=== PATIENT | female | born 1985 | race Caucasian/White ===

== ENCOUNTER → 2021-09-25 | Outpatient (CLI) | payer BC, OTHER ==
[~2021-09-25] MED LIST: YAZ
--- NOTE | 2021-09-25 15:48 | Diagnostic Imaging Report ---
PROCEDURE: Pelvic complete, transabdominal and transvaginal sonogram. Limited pelvic doppler. TECHNIQUE: Multiple real-time grayscale images were obtained of the pelvis in various projections transabdominally and transvaginally. Limited pelvic duplex images were obtained. HISTORY: Abnormal uterine bleeding COMPARISON: None available. FINDINGS: Uterus: The uterus is retroverted and measures 7.5 x 3.9 x 4.9 cm. The myometrium is homogeneous without fibroids. Endometrium: The endometrium is normal in thickness and measures 0.7 cm. There is flow seen within the cervix. Adnexa: The right ovary is surgically absent. Left ovary has a normal appearance. The left ovary measures 1.9 x 1.6 x 1.8 cm. Duplex images reveal normal vascular flow to both ovaries. Other: There is no free fluid within the pelvis. IMPRESSION: 1. Unremarkable pelvic ultrasound. Dictated by: Dictated on workstation # [id number]
== END ==
LOC: RAD 12:38
PROVIDERS: ATTEND Obstetrics & Gynecology
DX: N93.9 Abnormal uterine and vaginal bleeding, unspecified (principal)
CPT/HCPCS: 76830; 76856

== ENCOUNTER 2021-11-11 05:40 | Outpatient (CLI) | payer BC ==
[~2021-11-11] VITALS: Ht 162.6 cm; Wt 93.0 kg
[2021-11-11] MEDS ORDERED: DILT120C82 PO (10:57)
[2021-11-11] MEDS ORDERED: BUSP5TAB59 PO (10:57)
[2021-11-11] MEDS ORDERED: SOTA120T PO (10:57)
[2021-11-11] MEDS ORDERED: SERT-414 PO (10:57)
[2021-11-11] MEDS ORDERED: ETON68IM3 SQ (10:57)
== END 2021-11-11 11:45 | disposition home or self-care (01) ==
LOC: PREOP 05:40
PROVIDERS: ATTEND Obstetrics & Gynecology
DX: Z01.818 Encounter for other preprocedural examination (principal)

== ENCOUNTER 2021-11-17 06:57 | Day surgery (SDC) | payer BC ==
[2021-11-17] VITALS (10 sets, daily range): BP systolic 105–118; BP diastolic 61–79
[~2021-11-17] VITALS: Ht 162.6 cm; Wt 93.0 kg
[~2021-11-17 06:57] MED LIST changes: +BUSP5TAB59 PO; +DILT120C82 PO; +ETON68IM3 SQ; +SERT-414 PO; +SOTA120T PO
[2021-11-17] MEDS ORDERED: metroNIDAZOLE 500MG/100ML IVPB 100 ML IV ONE (07:30)
[2021-11-17] MEDS ORDERED: ceFAZolin 2 GM IV Premixed 50 ML IV ONE (07:30)
[2021-11-17] MEDS: LACTATED RINGERS 1,000 ML IV PRN ×3 (08:08→10:56)
[2021-11-17 08:10] LABS: BASOPHILS # (AUTO) 0.1 10^3/uL (0.0-0.1); BASOPHILS % (AUTO) 1 % (0-10); EOSINOPHILS # (AUTO) 0.3 10^3/uL (0.0-0.3); EOSINOPHILS % (AUTO) 2 % (0-10); HEMATOCRIT 47 % (35-52); HEMOGLOBIN 15.9 g/dL (11.5-16.0); LYMPHOCYTES # (AUTO) 3.7 10^3/uL (1.0-4.0); LYMPHOCYTES % (AUTO) 25 % (12-44); MEAN CORPUSCULAR HEMOGLOBIN 33 pg (25-34); MEAN CORPUSCULAR HGB CONC 34 g/dL (32-36); MEAN CORPUSCULAR VOLUME 97 fL (80-99); MEAN PLATELET VOLUME 10.6 fL (9.0-12.2); MONOCYTES # (AUTO) 0.7 10^3/uL (0.0-1.0); MONOCYTES % (AUTO) 4 % (0-12); NEUTROPHILS # (AUTO) 10.1 10^3/uL (1.8-7.8); NEUTROPHILS % (AUTO) 68 % (42-75); PLATELET COUNT 292 10^3/uL (130-400); WHITE BLOOD COUNT 14.9 10^3/uL (4.3-11.0)
[2021-11-17 08:28] LABS: EOSINOPHILS % (MANUAL) 5 %; LYMPHOCYTES % (MANUAL) 29 %; MONOCYTES % (MANUAL) 4 %; NEUTROPHILS % (MANUAL) 62 %
[2021-11-17 08:29] LABS: RBC MORPH NORMAL
[2021-11-17] MEDS ORDERED: BUPIVACAINE 0.25% 30 ML (SENSORCAINE) VIAL ONE (08:31)
[2021-11-17] MEDS ORDERED: CLINDAMYCIN 900 MG/50 ML IVPB 50 ML IV ONE ×2 (08:37→09:00)
[2021-11-17] MEDS ORDERED: GLYCOPYRROLATE 0.2 MG/ML (ROBINUL) 2 ML VIAL ONE (08:58)
[2021-11-17] MEDS ORDERED: LIDOCAINE PF 2% 5 ML (XYLOCAINE) VIAL ONE (08:58)
[2021-11-17] MEDS ORDERED: proPOfol 200 MG/20 ML (DIPRIVAN) VIAL IV ONE (08:58)
[2021-11-17] MEDS ORDERED: ONDANSETRON 4 MG/2 ML (SDV) Z0FRAN ONE (08:58)
[2021-11-17] MEDS ORDERED: fentaNYL INJ 100 MCG/2 ML AMP ONE (08:58)
[2021-11-17] MEDS ORDERED: ROCURONIUM 50 MG/5 ML (ZEMURON) VIAL IV ONE (08:58)
[2021-11-17] MEDS ORDERED: MIDAZOLAM 2 MG/2 ML (VERSED) VIAL ONE (08:58)
[2021-11-17] MEDS ORDERED: NEOSTIGMINE (BLOXIVERZ ) 1 MG/1ML 10 ML VIAL ONE (08:59)
--- NOTE | 2021-11-17 08:59 | Discharge Inst-Women's Service ---
Discharge Inst-Women's Serv Depart Medication/Instructions New, Converted or Re-Newed RX: Transmitted to Pharmacy Problems Reviewed?: Yes Consults/Follow Up Additional Follow Up: Yes Activity Activity: Activity as Tolerated Driving Instructions: No Driving for 1 Week NO SMOKING: NO SMOKING Nothing Inside Vagina: No Douching, No [place], No Tampons Diet Discharge Diet: No Restrictions Symptoms to Report to : Bleeding Excessive, Pain Increased, Fever Over 101 Degrees F, Vaginal Bleeding Increase, Questions/Concerns For Any Problems or Questions: Contact Your Physician Skin/Wound Care Infection Signs and Symptoms: Increased Redness, Foul Odor of Wound, Increased Drainage, Skin Itchy or Has a Rash, Increased Swelling, Temperature Above 101 F Operative Area Clean and Dry: Keep Incision Clean/Dry Stitches/Morgan/Dermabond: Dermabond, Care of Stitches Bathing Instructions: ADRIENNE Emerson DO Nov 17, 2021 08:59
[2021-11-17] MEDS ORDERED: ONDANSETRON 4 MG/2 ML (SDV) Z0FRAN IV PRN (09:00)
[2021-11-17] MEDS ORDERED: DOCUSATE SODIUM 100 MG (COLACE) CAP PO PRN (09:00)
[2021-11-17] MEDS ORDERED: SIMETHICONE 80 MG (MYLICON) CHEW PO PRN (09:00)
[2021-11-17] MEDS ORDERED: ZOLPIDEM 5 MG (AMBIEN) TAB PO PRN (09:00)
[2021-11-17] MEDS ORDERED: ANTACID SUSP 30 ML UDC (MYLANTA) PO PRN (09:00)
[2021-11-17] MEDS ORDERED: IBUPROFEN 600 MG (MOTRIN) TAB PO PRN (09:00)
[2021-11-17] MEDS ORDERED: HYDROcodone/APAP 7.5 MG/325 MG (LORTAB, LORCET PLUS) TABLET PO PRN (09:00)
[2021-11-17] MEDS ORDERED: HYDR-34 PO (09:01)
[2021-11-17] MEDS ORDERED: DOCU100C37 PO (09:01)
[2021-11-17] MEDS ORDERED: BENZ1LOZ74 MM (09:01)
[2021-11-17] MEDS ORDERED: SIME80TA16 PO (09:01)
[2021-11-17] MEDS ORDERED: IBUP-844 PO (09:01)
[2021-11-17] MEDS ORDERED: SUCCINYLCHOLINE INJ 100 MG/5 ML SYR/VIAL ONE (09:12)
[2021-11-17] MEDS ORDERED: PHENYLEPHRINE 100 MCG/ML 10 ML (ANESTHESIA) SYR ONE (09:26)
[2021-11-17] MEDS ORDERED: morphine INJ 10 MG/ML 1ML (SYR OR VIAL) IVP ONE (10:45)
[2021-11-17] MEDS ORDERED: HYDROmorphone 2 MG/ML VIAL (DILAUDID) IV ONE (10:45)
[2021-11-17] MEDS ORDERED: PROMETHAZINE INJ 25 MG/ML (PHENERGAN) AMP IVP ONE (10:45)
[2021-11-17] MEDS ORDERED: ONDANSETRON 4 MG/2 ML (SDV) Z0FRAN IVP PRN (10:45)
[2021-11-17] MEDS ORDERED: SEVOFLURANE (ULTANE) 15 ML INHAL SOLN ONE (10:47)
[2021-11-17] MEDS ORDERED: morphine INJ 10 MG/ML 1ML (SYR OR VIAL) ONE (10:51)
[2021-11-17] MEDS ORDERED: KETOROLAC 30 MG/ML VIAL ONE (10:51)
[2021-11-17] MEDS: KETOROLAC 30 MG/ML VIAL IVP PRN ×2 (10:54→17:07)
[2021-11-17] MEDS: LACTATED RINGERS 1,000 ML IV SCH ×2 (10:56→12:25)
[2021-11-17] MEDS ORDERED: CEPACOL SORE THROAT-COUGH LOZENGE MM PRN (12:30)
--- NOTE | 2021-11-17 13:06 | Anesthesia-General Post-Op ---
General Patient Condition Mental Status/LOC: Same as Preop Cardiovascular: Satisfactory Nausea/Vomiting: Present Respiratory: Satisfactory Pain: Controlled Complications: Absent Post Op Complications Complications None Follow Up Care/Instructions Patient Instructions None needed. Anesthesia/Patient Condition Patient Condition Patient was doing well in PACU, no complaints, stable vital signs, no apparent adverse anesthesia problems. She did have nausea and vomiting on arrival to the operating room, prior to induction. She stated that it was much improved in PACU. No complications reported per nursing. IVAN COSTA DO Nov 17, 2021 13:06
--- NOTE | 2021-11-17 15:50 | OPERATIVE REPORT ---
DATE OF SERVICE: 11/17/2021 PREOPERATIVE DIAGNOSES: 1. A 36-year-old female with chronic pelvic pain. 2. Pelvic endometriosis. 3. Dyspareunia and dysmenorrhea. POSTOPERATIVE DIAGNOSES: 1. A 36-year-old female with chronic pelvic pain. 2. Pelvic endometriosis. 3. Dyspareunia and dysmenorrhea. PROCEDURE: Robotic-assisted total laparoscopic hysterectomy with left salpingo-oophorectomy. SURGEON: Papito Felipe DO DECK SPECIALIST: Ese Gan DNP, who was necessary for manipulation and retraction throughout the procedure. ANESTHESIA: General endotracheal. ESTIMATED BLOOD LOSS: Minimal. URINE OUTPUT: 150 mL clear at the end of the procedure. FLUIDS: 1800 mL lactated Ringer's solution. FINDINGS: Normal sized uterus, absent right adnexa, fallopian tube, and ovary. Left, normal-appearing fallopian tube with filmy adhesions of the adnexa to the descending sigmoid colon on the left side, multiple serosal dark spots that are consistent with a history of pelvic peritoneal endometriosis. Grossly normal-appearing external female genitalia. SPECIMEN SENT: Uterus, left tube and ovary. INDICATIONS FOR PROCEDURE: This 36-year-old female was a patient who had sought care in my office for definitive measures for ongoing issues with endometriosis. She has been dealing with this since her teenage years and has undergone multiple conservative treatment modalities without any relief. The patient is now done with childbearing and wishes to seek more definitive measures. It is understanding that endometriosis driven by hormones and is okay with being without hormones for 6 to 12 months to allow for endometriosis to resolve and then possibly being on estrogen replacement therapy. We discussed the risk of this involved including the risk of the surgery, which would include bleeding, infection, damaging surrounding structures including, but not limited to bowel, bladder, ureter, kidneys, possible need for reoperation, postoperative complications that may occur, risk from anesthesia, recovery timeframe, hospital stay and even . After everything was discussed with the patient in detail, consent was obtained, the patient was taken to the operating room. OPERATIVE REPORT IN DETAIL: Once in the operating room, general anesthesia was found to be adequate. She was placed in dorsal lithotomy position, prepped and draped in normal sterile fashion. A timeout was performed and a Faulkner catheter was placed using sterile technique. A weighted speculum inserted to the patient's vagina. Right angle retractor was used to visualize the cervix, which was grasped at 12 o'clock position using a long Allis clamp and 0 Vicryl suture was then placed anterior lip of the cervix and the Vicryl was then used as my retraction point on the cervix. I then gently sound the uterine cavity, depth was found to be 8 cm. I placed a Patricia uterine manipulator with 8 cm tip and a 3 cm colpotomy ring into the uterus, deploying the balloon and advancing the colpotomy ring around the vaginal fornix after which I removed all the other instruments from the patient's vagina, performed change of gloves, turned my attention to the abdomen where the midclavicular line on the left side about 1 fingerbreadth under the lowest rib. I introduced a Veress needle through intraperitoneal placement confirmed using saline drop test. An opening pressure of 6 mmHg was noted. I proceeded to maximum pressure of 15 mmHg using CO2 gas, at which point, I infiltrated the infraumbilical area using 0.25% Marcaine and make an 8 mm incision with a knife and directed a blunt 8 mm da Filiberto laparoscopic trocar through the incision until intraperitoneal placement was confirmed using the da Filiberto laparoscope. No evidence of damage is noted upon my entry site. I then scanned the upper abdominal anatomy, which appears to be grossly normal. The Veress needle entry site was identified and found to have caused no damage as well. The Veress needle was then removed. I then had the patient placed in steep Trendelenburg where I visualize all my pelvic anatomy as defined in my findings above. I placed two lateral trocars approximately 10 cm lateral to my infraumbilical trocar. Both of these are 8 mm incisions. The skin is infiltrated using 0.25% Marcaine. Incisions were made with a knife and the trocars were placed under direct visualization of the laparoscope. Once both of these are in place, I brought in the da Filiberto robot and docked in appropriate fashion, placing the SynchroSeal device in left hand and monopolar brandon in the right hand. I performed the following dissection. The right side is absent, therefore on the left side, I started at the infundibulopelvic ligament, which I sealed and transected using the SynchroSeal device. I then grasped the round ligament, which I sealed and transected using the SynchroSeal device. I took this all the way down to the lower uterine segment, at which point I the anterior and posterior leaflets of the broad ligament. The anterior leaflet was taken around the anterior vaginal fornix. Posterior leaflets was taken around the posterior vaginal fornix. This allows me to skeletonize the uterine vessels laterally, which I sealed and transected using the vessel sealer. I took my dissection from the anterior peritoneal reflection around to the right side due to the absence of the right broad ligament, which allows me to open up the lateral aspect of the uterus and the vascular blood supply. I did this similarly on the posterior side as well. Once this was done and the peritoneum was pulled away, I am able to skeletonize uterine vessels on the right side, which I sealed and transected using the SynchroSeal device. I then created a colpotomy at 12 o'clock position using monopolar brandon and took this circumferentially around the vaginal fornix, amputating the cervix away from the vagina. The entire cervix, uterus and left tube and ovary were then removed through the vagina. I then closed the vaginal cuff using 2-0 V-Loc in a running fashion, after which no active bleeding noted from any of my dissection planes. I then undocked the da Filiberto robot and proceeded with remainder of the case laparoscopically. I copiously irrigated the pelvis using normal saline. Once again, there was no active bleeding noted from any of my dissection planes. I placed Surgiflo hemostatic agent over all my planes of dissection. I had the patient taken out of steep Trendelenburg where I released insufflation and removed the lateral trocars under direct visualization of the laparoscope. The infraumbilical trocars left in place to release insufflation and to introduce 10 mL of 0.25% Marcaine into peritoneal cavity for postoperative pain management. I then removed this trocar as well. The skin reapproximated using 4-0 Monocryl. Bandage was placed over the incisions. Faulkner catheter was left in place. The patient tolerated the procedure well and sent to recovery area in stable condition. Lap and sponge counts were correct at the end of procedure. Instrument counts correct as well. Two grams of Ancef, 900 mg of clindamycin and 500 mg of Flagyl were given preoperatively for infection prophylaxis. Job ID: [id number] DocumentID: [id number] Dictated Date: 11/17/2021 10:55:26 [employer] Worker Date: 11/17/2021 15:49:53 Dictated By: PAPITO FELIPE DO
== END 2021-11-17 18:05 | disposition home or self-care (01) ==
LOC: SDC 06:57 → WS 11:37 → SDC 18:05
PROVIDERS: ATTEND Obstetrics & Gynecology
DX: N80.0 Endometriosis of uterus (principal); N94.6 Dysmenorrhea, unspecified
CPT/HCPCS: 36415; 84703; 85007; 85027; 86850; 86900; 86901

== ENCOUNTER → 2023-04-14 | Outpatient (CLI) | payer OTHER ==
[~2023-04-14] MED LIST changes: +BENZ1LOZ74 MM; +DOCU100C37 PO; -ETON68IM3 SQ; +ETON68IM4 SQ; +HYDR-34 PO; +IBUP-844 PO; +SIME80TA16 PO
--- NOTE | 2023-04-14 11:39 | Diagnostic Imaging Report ---
PROCEDURE: CT abdomen and pelvis without contrast. TECHNIQUE: Multiple contiguous axial images were obtained through the abdomen and pelvis without the use of intravenous contrast. Auto Exposure Controls were utilized during the CT exam to meet ALARA standards for radiation dose reduction. INDICATION: Right lower quadrant and low back pain. Unenhanced images of liver and spleen reveal no focal abnormality. The gallbladder is surgically absent. There is no evidence of pancreatic or adrenal gland abnormality. There are multiple bilateral nonobstructing renal calculi in the mid and lower pole regions. These measure up to approximately 0.5 cm in size without evidence of hydronephrosis or hydroureter. No other ureteric or bladder stone is identified. There is no evidence of free fluid. Note is made of sclerosis about the sacroiliac joint which may be due to sacroiliitis with sclerosis and irregularity along the inferior endplate of L4. IMPRESSION: Bilateral nephrolithiases, without evidence of obstructive uropathy. Note is made of osteosclerosis involving L4 and the sacroiliac joint regions. Dictated by: Dictated on workstation # [id number]
== END ==
LOC: RAD 10:25
PROVIDERS: ATTEND Nurse Practitioner Women's Health
DX: N20.0 Calculus of kidney (principal)
CPT/HCPCS: 74176